=== PATIENT | male | born 1980 | race Caucasian/White ===

== ENCOUNTER 2023-06-25 09:26 | Inpatient (IN) | payer BC ==
[~2023-06-25] VITALS: Ht 188 cm; Wt 120.2 kg
[2023-06-25 09:26] VITALS: BP_SYST 158; PULSE 122; RESP 19; TEMP 98.3; O2SAT 99
[2023-06-25] MEDS ORDERED: PIPERACILLIN/TAZO 3.375 GM in NS 50 ML IV ONE (10:45)
[2023-06-25] MEDS: VANCOMYCIN HCL 1.25 GM/NS 250 ML IV ONE ×2 (10:45→11:35)
[2023-06-25] MEDS ORDERED: NACL 0.9% 1,000 ML IV ONE ×3 (10:45→13:00)
[2023-06-25 10:51] LABS: HEMATOCRIT 41.5 % (36-54); HEMOGLOBIN 13.2 g/dL (14.0-18.0); MEAN CORPUSCULAR HEMOGLOBIN 27 pg (27-31); MEAN CORPUSCULAR HGB CONC 32 % (32-36); MEAN CORPUSCULAR VOLUME 85 fL (79.0-98.0); PLATELET COUNT (AUTO) 252 K/uL (130-430); RED CELL DISTRIBUTION WIDTH 13.2 % (9.0-15.0); WHITE BLOOD COUNT (AUTO) 21.9 K/uL (4.8-10.8)
[2023-06-25] MEDS ORDERED: PIPERACILLIN/TAZOBACTAM 3.375 GM/VIAL (ZOSYN) IV ONE (10:54)
[2023-06-25 10:58] LABS: PROTHROMBIN TIME 10.5 SECS (9.5-12.5)
[2023-06-25] MEDS ORDERED: VANCOMYCIN HCL 1,000 MG in NS 250 ML IV ONE (11:00)
[2023-06-25] MEDS ORDERED: VANCOMYCIN HCL 1000 MG/VIAL IV ONE (11:03)
[2023-06-25 11:07] LABS: ALANINE AMINOTRANSFERASE 29 U/L (12-78); ALBUMIN 2.9 g/dL (3.4-4.8); ANION GAP 26 (5-15); ASPARTATE AMINOTRANSFERASE 19 U/L (10-37); BILIRUBIN,DIRECT 0.3 mg/dL (0.0-0.3); CALCIUM 9.7 mg/dL (8.4-11.0); CARBON DIOXIDE 11 mmol/L (23-29); CHLORIDE 93 mmol/L (98-107); CREATININE 1.22 mg/dL (0.55-1.30); GFR AFRICAN AMERICAN 84 mL/min (>90); POTASSIUM 4.4 mmol/L (3.5-5.1); SODIUM SERUM 130 mmol/L (136-145); TOTAL BILIRUBIN 0.9 mg/dL (0.0-1.0); TOTAL PROTEIN, SERUM 8.7 g/dL (6.4-8.3); UREA NITROGEN, BLOOD 13 mg/dL (8-21)
[2023-06-25 11:11] LABS: GFR NON AFRICAN-AMERICAN 70 mL/min (>90)
[2023-06-25 11:12] LABS: GLUCOSE 435 mg/dL (74-106)
[2023-06-25 11:14] LABS: ACETONE, SERUM SMALL (NEGATIVE)
[2023-06-25 11:22] LABS: BILIRUBIN,URINE 1+ (NEGATIVE); BLOOD, URINE 2+ (NEGATIVE); COLOR,URINE YELLOW (YELLOW); GLUCOSE,URINE 2+ (NEGATIVE); KETONES,URINE 3+ (NEGATIVE); LEUKOCYTE ESTERASE ,URINE NEGATIVE (NEGATIVE); NITRITE, URINE NEGATIVE (NEGATIVE); PH,URINE 5.5 (5.0-8.0); PROTEIN URINE 1+ (NEGATIVE); UROBILINOGEN,URINE 0.2 (0.2-1.0)
[2023-06-25 11:23] LABS: CLARITY/URINE CLOUDY (CLEAR)
[2023-06-25] MEDS ORDERED: INSULIN REGULAR, HUMAN 100 UNITS in NS 99 ML IV ONE ×2 (11:30)
[2023-06-25] MEDS ORDERED: KCL 20 mEq in 100 mL (PREMIX) 100 ML IV ONE (11:30)
[2023-06-25 11:42] LABS: BAND % (MANUAL) 10 % (0-6); BASOPHILS % (MANUAL) 0 % (0-2); EOSINOPHILS % (MANUAL) 0 % (0-7); LYMPHOCYTES % (MANUAL) 6 % (20-46); MONOCYTES % (MANUAL) 8 % (0-11); PLATELET ESTIMATE ADEQUATE (ADEQUATE)
[2023-06-25 11:45] LABS: WBC,URINE 0-3 /HPF (0-3)
[2023-06-25 11:46] LABS: BACTERIA,URINE FEW /HPF (None Seen); FINE GRANULAR CASTS,URINE 0-10 /LPF (None Seen)
[2023-06-25] MEDS ORDERED: METF-379 PO (11:47)
[2023-06-25] MEDS ORDERED: DEXTROSE 50% JECT 50 ML DISP.SYRIN IVP PRN (12:15)
[2023-06-25] MEDS ORDERED: ONDANSETRON HCL 4 MG/2 ML VIAL IVP PRN (12:15)
[2023-06-25] MEDS ORDERED: MORPHINE 2 MG/ML INJ. SYRINGE IVP PRN (12:15)
[2023-06-25] MEDS ORDERED: MAGNESIUM SULFATE 50 ML IV PRN ×2 (12:15→19:30)
[2023-06-25] MEDS ORDERED: NALOXONE HCL 2 MG/2 ML SYR IVP PRN ×2 (12:15)
[2023-06-25] MEDS ORDERED: ACETAMINOPHEN 500 MG TABLET PO PRN ×2 (12:15→13:00)
[2023-06-25] MEDS ORDERED: LORazepam 2 MG/ML VIAL IVP PRN (12:15)
[2023-06-25] MEDS ORDERED: INSULIN REGULAR, HUMAN 100 UNITS in NS 99 ML IV PRN ×2 (12:15)
[2023-06-25] MEDS ORDERED: ZOLPIDEM TARTRATE 5 MG TABLET PO PRN (12:15)
[2023-06-25] MEDS ORDERED: DOCUSATE SODIUM 100 MG CAPSULE PO PRN (12:15)
[2023-06-25] MEDS: NACL 0.9% 1,000 ML IV SCH (12:27)
[2023-06-25 12:49] LABS: BLOOD GAS PH 7.242 (7.350-7.450)
[2023-06-25 12:50] LABS: ABG O2 SAT% ESTIMATE 97.7 % (94.0-100.0); ALLEN'S TEST POSITIVE (P); BLOOD GAS BASE EXCESS -18.4 mmol/L (-3.0-3.0); BLOOD GAS HCO3 6.1 mmol/L (21.0-27.0); BLOOD GAS PCO2 14.4 mmHg (32.0-45.0)
[2023-06-25 14:56] LABS: PHOSPHORUS 4.1 mg/dL (2.7-4.5)
[2023-06-25 16:29] LABS: COVID19 ANTIGEN SOFIA FIA NEGATIVE (NEGATIVE); INFLUENZA TYPE A Negative (NEGATIVE); INFLUENZA TYPE B NEGATIVE (NEGATIVE)
[2023-06-25 17:33] LABS: CREATININE 1.09 mg/dL (0.55-1.30); POTASSIUM 4.7 mmol/L (3.5-5.1)
[2023-06-25] MEDS: PIPERACILLIN/TAZO 3.375/DEX-IS 50 ML IV SCH (18:59)
[2023-06-25 19:53] LABS: CREATININE 1.08 mg/dL (0.55-1.30); POTASSIUM 4.1 mmol/L (3.5-5.1)
[2023-06-25 21:15] VITALS: BP_SYST 129; PULSE 102; RESP 26; TEMP 98.8; O2SAT 99
[2023-06-25] MEDS: VANCOMYCIN HCL 1,250 MG in NS 250 ML IV SCH (21:39)
[2023-06-25 23:15] VITALS: BP_SYST 147; PULSE 94; RESP 21; TEMP 98.8; O2SAT 99
[2023-06-26] VITALS (23 sets, daily range): BP systolic 126–168; PULSE 83–93; RESP 12–24; TEMP 98.4–99; O2SAT 95–99
[2023-06-26] MEDS: NACL 0.9% 1,000 ML IV SCH ×4 (01:04→18:27)
[2023-06-26] MEDS: PIPERACILLIN/TAZO 3.375/DEX-IS 50 ML IV SCH ×4 (01:21→18:26)
[2023-06-26] MEDS: MORPHINE 2 MG/ML INJ. SYRINGE IVP PRN ×5 (01:23→19:33)
[2023-06-26 01:32] LABS: CALCIUM 9.1 mg/dL (8.4-11.0); CREATININE 1.05 mg/dL (0.55-1.30); POTASSIUM 3.5 mmol/L (3.5-5.1)
[2023-06-26 05:25] LABS: BASOPHILS # (AUTO) 0.1 K/uL (0.0-0.2); BASOPHILS % (AUTO) 0.4 % (0.0-2.0); EOSINOPHILS # (AUTO) 0.1 K/uL (0.0-0.4); EOSINOPHILS % (AUTO) 0.9 % (0.0-4.0); HEMATOCRIT 34.7 % (36-54); HEMOGLOBIN 11.1 g/dL (14.0-18.0); LYMPHOCYTES % (AUTO) 7.5 % (20.5-51.5); MEAN CORPUSCULAR HEMOGLOBIN 27 pg (27-31); MEAN CORPUSCULAR HGB CONC 32 % (32-36); MEAN CORPUSCULAR VOLUME 83 fL (79.0-98.0); MONOCYTES # (AUTO) 1.7 K/uL (0.0-1.0); MONOCYTES % (AUTO) 12.4 % (1.7-9.3); NEUTROPHILS # (AUTO) 10.6 K/uL (1.8-7.7); NEUTROPHILS % (AUTO) 78.8 % (40.0-70.0); PLATELET COUNT (AUTO) 203 K/uL (130-430); RED BLOOD CELL COUNT(AUTO) 4.19 MIL/uL (4.2-6.2); RED CELL DISTRIBUTION WIDTH 13.4 % (9.0-15.0); WHITE BLOOD COUNT (AUTO) 13.4 K/uL (4.8-10.8)
[2023-06-26 05:41] LABS: CALCIUM 8.8 mg/dL (8.4-11.0); CREATININE 0.96 mg/dL (0.55-1.30); POTASSIUM 3.5 mmol/L (3.5-5.1)
[2023-06-26] MEDS ORDERED: COMMUNICATION ORDER XX ONE (07:30)
[2023-06-26 08:14] LABS: CALCIUM 7.8 mg/dL (8.4-11.0); CREATININE 0.93 mg/dL (0.55-1.30); POTASSIUM 3.2 mmol/L (3.5-5.1)
[2023-06-26] MEDS: VANCOMYCIN HCL 1,250 MG in NS 250 ML IV SCH ×2 (09:30→21:14)
[2023-06-26 12:45] LABS: CALCIUM 8.8 mg/dL (8.4-11.0); CREATININE 0.94 mg/dL (0.55-1.30); POTASSIUM 3.2 mmol/L (3.5-5.1)
[2023-06-26 16:43] LABS: CALCIUM 8.7 mg/dL (8.4-11.0); CREATININE 0.94 mg/dL (0.55-1.30)
[2023-06-27] VITALS (24 sets, daily range): BP systolic 129–162; PULSE 78–97; RESP 12–27; TEMP 98.3–98.7; O2SAT 94–99
[2023-06-27] MEDS: MORPHINE 2 MG/ML INJ. SYRINGE IVP PRN (03:17)
[2023-06-27] MEDS: NACL 0.9% 1,000 ML IV SCH ×3 (04:59→23:49)
[2023-06-27 05:02] LABS: BASOPHILS % (AUTO) 0.3 % (0.0-2.0); EOSINOPHILS # (AUTO) 0.4 K/uL (0.0-0.4); EOSINOPHILS % (AUTO) 3.1 % (0.0-4.0); HEMATOCRIT 33.5 % (36-54); HEMOGLOBIN 10.8 g/dL (14.0-18.0); LYMPHOCYTES # (AUTO) 1.3 K/uL (1.0-5.5); LYMPHOCYTES % (AUTO) 11.8 % (20.5-51.5); MEAN CORPUSCULAR HEMOGLOBIN 26 pg (27-31); MEAN CORPUSCULAR HGB CONC 32 % (32-36); MEAN CORPUSCULAR VOLUME 82 fL (79.0-98.0); MONOCYTES # (AUTO) 1.3 K/uL (0.0-1.0); MONOCYTES % (AUTO) 11.8 % (1.7-9.3); NEUTROPHILS # (AUTO) 8.2 K/uL (1.8-7.7); PLATELET COUNT (AUTO) 229 K/uL (130-430); RED CELL DISTRIBUTION WIDTH 13.3 % (9.0-15.0); WHITE BLOOD COUNT (AUTO) 11.2 K/uL (4.8-10.8)
[2023-06-27 05:14] LABS: CALCIUM 8.8 mg/dL (8.4-11.0); CREATININE 0.88 mg/dL (0.55-1.30)
[2023-06-27 06:00] LABS: POTASSIUM 2.8 mmol/L (3.5-5.1)
[2023-06-27] MEDS: PIPERACILLIN/TAZO 3.375/DEX-IS 50 ML IV SCH ×5 (06:01→23:49)
[2023-06-27] MEDS: POTASSIUM CHLORIDE 20 MEQ TABLET.ER PO PRN (06:34)
[2023-06-27] MEDS ORDERED: GLUCOSE (DEXTROSE) ORAL GEL -Adults PO PRN (07:30)
[2023-06-27] MEDS ORDERED: D5W 1,000 ML IV PRN (07:30)
[2023-06-27] MEDS ORDERED: DEXTROSE 50%-WATER 50 ML DISP.SYRIN IVP PRN (07:30)
[2023-06-27] MEDS: INSULIN GLARGINE 100 UNITS/ML, 10 ML VIAL SUBCUT SCH ×2 (09:00→21:12)
[2023-06-27] MEDS: VANCOMYCIN HCL 1,250 MG in NS 250 ML IV SCH (10:19)
[2023-06-27] MEDS: VANCOMYCIN HCL 1,500 MG in NS 250 ML IV SCH (16:57)
[2023-06-27] MEDS ORDERED: VANCOMYCIN HCL 1,250 MG in NS 250 ML IV SCH (17:00)
[2023-06-27] MEDS: INSULIN LISPRO SLIDING SCALE 100 UNITS/ML, 3 ML VIAL (humaLOG) SUBCUT PRN (21:14)
[2023-06-28] VITALS (12 sets, daily range): BP systolic 124–140; PULSE 69–100; RESP 12–27; TEMP 97.6–99.4; O2SAT 95–98
[2023-06-28] MEDS: VANCOMYCIN HCL 1,500 MG in NS 250 ML IV SCH ×2 (00:52→09:00)
[2023-06-28 05:52] LABS: CALCIUM 8.8 mg/dL (8.4-11.0); CREATININE 0.8 mg/dL (0.55-1.30)
[2023-06-28 05:54] LABS: POTASSIUM 2.9 mmol/L (3.5-5.1)
[2023-06-28 06:06] LABS: BASOPHILS # (AUTO) 0.1 K/uL (0.0-0.2); BASOPHILS % (AUTO) 0.6 % (0.0-2.0); EOSINOPHILS # (AUTO) 0.4 K/uL (0.0-0.4); EOSINOPHILS % (AUTO) 4.1 % (0.0-4.0); HEMATOCRIT 34.1 % (36-54); HEMOGLOBIN 11.2 g/dL (14.0-18.0); LYMPHOCYTES % (AUTO) 20.5 % (20.5-51.5); MEAN CORPUSCULAR HEMOGLOBIN 27 pg (27-31); MEAN CORPUSCULAR HGB CONC 33 % (32-36); MEAN CORPUSCULAR VOLUME 81 fL (79.0-98.0); MONOCYTES # (AUTO) 1.3 K/uL (0.0-1.0); MONOCYTES % (AUTO) 12.9 % (1.7-9.3); NEUTROPHILS # (AUTO) 6.1 K/uL (1.8-7.7); NEUTROPHILS % (AUTO) 61.9 % (40.0-70.0); PLATELET COUNT (AUTO) 265 K/uL (130-430); RED BLOOD CELL COUNT(AUTO) 4.21 MIL/uL (4.2-6.2); RED CELL DISTRIBUTION WIDTH 13.7 % (9.0-15.0); WHITE BLOOD COUNT (AUTO) 9.8 K/uL (4.8-10.8)
[2023-06-28] MEDS: PIPERACILLIN/TAZO 3.375/DEX-IS 50 ML IV SCH ×3 (06:09→17:51)
[2023-06-28] MEDS: POTASSIUM CHLORIDE 20 MEQ TABLET.ER PO PRN (06:10)
[2023-06-28] MEDS: INSULIN LISPRO SLIDING SCALE 100 UNITS/ML, 3 ML VIAL (humaLOG) SUBCUT PRN ×4 (06:13→21:43)
[2023-06-28] MEDS ORDERED: HYDROmorphone 2 MG/ML VIAL ONE (07:23)
[2023-06-28] MEDS ORDERED: MIDAZOLAM HCL 2 MG/2 ML VIAL (VERSED) ONE (07:24)
[2023-06-28] MEDS ORDERED: NS 1000 ML IV.SOLN IV ONE (07:30)
[2023-06-28] MEDS ORDERED: SUCCINYLCHOLINE CHLORIDE 20 MG/ML(QUELICIN) ONE (07:30)
[2023-06-28] MEDS ORDERED: METOCLOPRAMIDE HCL 10 MG/2 ML VIAL ONE (07:30)
[2023-06-28] MEDS ORDERED: ONDANSETRON HCL 4 MG/2 ML VIAL ONE (07:30)
[2023-06-28] MEDS ORDERED: NS IRRIG SOLN 1000 ML IR ONE (07:30)
[2023-06-28] MEDS ORDERED: SEVOFLURANE 15 MIN GAS INH ONE (07:30)
[2023-06-28] MEDS ORDERED: PROPOFOL 200MG/ 20ML VIAL (DIPRIVAN) IV ONE (07:30)
[2023-06-28] MEDS ORDERED: HYDROcodone/ACETAMIN 5-325 MG TAB (NORCO/ VICODIN) PO PRN (08:15)
[2023-06-28] MEDS ORDERED: HYDROmorphone 1 MG/ML INJ. CARTRIDGE IVP PRN ×3 (08:15→08:30)
[2023-06-28] MEDS ORDERED: ONDANSETRON HCL 4 MG/2 ML VIAL IVP PRN (08:30)
[2023-06-28] MEDS ORDERED: NALOXONE HCL 0.4 MG/ML AMP (NARCAN) IVP PRN ×3 (08:30→10:45)
[2023-06-28] MEDS ORDERED: HYDROmorphone 2 MG/ML VIAL IVP PRN (08:30)
[2023-06-28] MEDS ORDERED: METOCLOPRAMIDE HCL 10 MG/2 ML VIAL IVP PRN (08:30)
[2023-06-28] MEDS ORDERED: INSULIN REGULAR, HUMAN 100 UNITS/ML, 3 ML VIAL (humuLIN R) ONE (08:56)
[2023-06-28] MEDS: INSULIN GLARGINE 100 UNITS/ML, 10 ML VIAL SUBCUT SCH ×2 (09:00→21:38)
[2023-06-28] MEDS: NACL 0.9% 1,000 ML IV SCH ×2 (10:46→21:48)
[2023-06-28] MEDS ORDERED: POTASSIUM CHLORIDE 20 MEQ TABLET.ER PO ONE (11:00)
[2023-06-28] MEDS: MORPHINE 2 MG/ML INJ. SYRINGE IVP PRN (12:12)
[2023-06-28] MEDS: MUPIROCIN 2% TOPICAL OINTMENT 22 GM NS SCH (21:00)
[2023-06-29] VITALS (7 sets, daily range): BP systolic 136–151; PULSE 16–84; RESP 16–20; TEMP 98.3–98.9; O2SAT 95–99
[2023-06-29] MEDS ORDERED: VANCOMYCIN HCL 1,500 MG in NS 250 ML IV SCH (02:00)
[2023-06-29] MEDS: PIPERACILLIN/TAZO 3.375/DEX-IS 50 ML IV SCH ×4 (05:34→17:15)
[2023-06-29] MEDS: INSULIN LISPRO SLIDING SCALE 100 UNITS/ML, 3 ML VIAL (humaLOG) SUBCUT PRN ×4 (07:07→21:26)
[2023-06-29] MEDS: NACL 0.9% 1,000 ML IV SCH ×3 (07:14→21:39)
[2023-06-29] MEDS: MUPIROCIN 2% TOPICAL OINTMENT 22 GM NS SCH ×2 (08:40→21:21)
[2023-06-29] MEDS: INSULIN GLARGINE 100 UNITS/ML, 10 ML VIAL SUBCUT SCH ×2 (08:42→21:28)
[2023-06-29] MEDS: POTASSIUM CHLORIDE 20 MEQ TABLET.ER PO SCH (08:42)
[2023-06-29 09:25] LABS: BASOPHILS % (AUTO) 0.5 % (0.0-2.0); EOSINOPHILS # (AUTO) 0.3 K/uL (0.0-0.4); EOSINOPHILS % (AUTO) 3.2 % (0.0-4.0); HEMATOCRIT 36.3 % (36-54); HEMOGLOBIN 11.7 g/dL (14.0-18.0); LYMPHOCYTES # (AUTO) 1.9 K/uL (1.0-5.5); LYMPHOCYTES % (AUTO) 20.9 % (20.5-51.5); MEAN CORPUSCULAR HEMOGLOBIN 26 pg (27-31); MEAN CORPUSCULAR HGB CONC 32 % (32-36); MEAN CORPUSCULAR VOLUME 82 fL (79.0-98.0); MONOCYTES # (AUTO) 1.1 K/uL (0.0-1.0); MONOCYTES % (AUTO) 11.8 % (1.7-9.3); NEUTROPHILS # (AUTO) 5.7 K/uL (1.8-7.7); NEUTROPHILS % (AUTO) 63.6 % (40.0-70.0); PLATELET COUNT (AUTO) 300 K/uL (130-430); RED BLOOD CELL COUNT(AUTO) 4.43 MIL/uL (4.2-6.2); RED CELL DISTRIBUTION WIDTH 13.6 % (9.0-15.0)
[2023-06-29 09:35] LABS: CALCIUM 8.6 mg/dL (8.4-11.0); CREATININE 0.82 mg/dL (0.55-1.30)
[2023-06-29 09:38] LABS: POTASSIUM 2.9 mmol/L (3.5-5.1)
[2023-06-29] MEDS ORDERED: MUPIROCIN 1 GM OIN.PF.APP NS SCH (14:30)
[2023-06-29] MEDS: INSULIN Lispro 100 UNITS/ML, 3 ML VIAL (humaLOG) SUBCUT SCH (17:14)
[2023-06-29] MEDS: VANCOMYCIN HCL 1,250 MG in NS 250 ML IV SCH (21:23)
[2023-06-30] MEDS: PIPERACILLIN/TAZO 3.375/DEX-IS 50 ML IV SCH ×2 (00:22→05:41)
[2023-06-30 01:08] VITALS: BP_SYST 146; PULSE 75; RESP 18; TEMP 97.6; O2SAT 97
[2023-06-30] MEDS: VANCOMYCIN HCL 1,250 MG in NS 250 ML IV SCH ×2 (05:40→14:00)
[2023-06-30] MEDS: INSULIN Lispro 100 UNITS/ML, 3 ML VIAL (humaLOG) SUBCUT SCH ×2 (07:02→12:03)
[2023-06-30] MEDS: INSULIN LISPRO SLIDING SCALE 100 UNITS/ML, 3 ML VIAL (humaLOG) SUBCUT PRN ×2 (07:06→12:04)
[2023-06-30] MEDS: POTASSIUM CHLORIDE 20 MEQ TABLET.ER PO SCH (08:25)
[2023-06-30] MEDS: MUPIROCIN 2% TOPICAL OINTMENT 22 GM NS SCH (08:25)
[2023-06-30] MEDS: INSULIN GLARGINE 100 UNITS/ML, 10 ML VIAL SUBCUT SCH (08:27)
[2023-06-30 09:49] LABS: BASOPHILS # (AUTO) 0.1 K/uL (0.0-0.2); BASOPHILS % (AUTO) 0.6 % (0.0-2.0); EOSINOPHILS # (AUTO) 0.3 K/uL (0.0-0.4); HEMATOCRIT 36.6 % (36-54); HEMOGLOBIN 11.7 g/dL (14.0-18.0); LYMPHOCYTES # (AUTO) 2.4 K/uL (1.0-5.5); MEAN CORPUSCULAR HEMOGLOBIN 26 pg (27-31); MEAN CORPUSCULAR HGB CONC 32 % (32-36); MEAN CORPUSCULAR VOLUME 82 fL (79.0-98.0); MONOCYTES # (AUTO) 1.2 K/uL (0.0-1.0); MONOCYTES % (AUTO) 12.5 % (1.7-9.3); NEUTROPHILS # (AUTO) 5.3 K/uL (1.8-7.7); NEUTROPHILS % (AUTO) 57.9 % (40.0-70.0); PLATELET COUNT (AUTO) 327 K/uL (130-430); RED BLOOD CELL COUNT(AUTO) 4.47 MIL/uL (4.2-6.2); RED CELL DISTRIBUTION WIDTH 13.3 % (9.0-15.0); WHITE BLOOD COUNT (AUTO) 9.3 K/uL (4.8-10.8)
[2023-06-30 10:48] LABS: CALCIUM 8.6 mg/dL (8.4-11.0); CREATININE 0.88 mg/dL (0.55-1.30)
[2023-06-30] MEDS ORDERED: LISI10TA29 PO (10:54)
[2023-06-30] MEDS ORDERED: INSU300I SQ (10:54)
[2023-06-30] MEDS ORDERED: LINE600T12 PO (10:55)
[2023-06-30] MEDS ORDERED: MUPIROCIN 2% TOPICAL OINTMENT 22 GM TP SCH (11:00)
[2023-06-30] MEDS ORDERED: LISINOPRIL 10 MG TABLET (PRINIVIL) PO ONE (11:00)
[2023-06-30] MEDS ORDERED: HYDR-3917 PO (11:03)
[2023-06-30 11:04] VITALS: BP_SYST 143; PULSE 84; RESP 16; TEMP 98; O2SAT 96
[2023-06-30 12:12] VITALS: BP_SYST 146; PULSE 73; RESP 18; TEMP 98.3; O2SAT 96
[2023-06-30] MEDS: MORPHINE 2 MG/ML INJ. SYRINGE IVP PRN (13:42)
[2023-06-30] MEDS: NACL 0.9% 1,000 ML IV SCH (13:43)
[2023-06-30] MEDS ORDERED: INSU100V9 SQ (23:05)
[2023-07-01] MEDS ORDERED: LISINOPRIL 10 MG TABLET (PRINIVIL) PO SCH (09:00)
== END 2023-06-30 15:10 | disposition home health service (06) | DRG 853 ==
LOC: SED 09:26 → SIC 11:37 → SMU 06-28 15:20
PROVIDERS: ADMIT General Practice; ATTEND General Practice
PROC: 0JB80ZZ Excision of Abdomen Subcutaneous Tissue and Fascia, Open Approach (ICD-10-PCS; principal; 2023-06-28 07:40)
DX: A41.9 Sepsis, unspecified organism (principal); E11.10 Type 2 diabetes mellitus with ketoacidosis without coma; L02.214 Cutaneous abscess of groin; L03.314 Cellulitis of groin; Z20.822 Contact with and (suspected) exposure to COVID-19; R65.20 Severe sepsis without septic shock; E66.9 Obesity, unspecified; E11.65 Type 2 diabetes mellitus with hyperglycemia; E87.6 Hypokalemia; Z91.013 Allergy to seafood; Z79.899 Other long term (current) drug therapy; Z79.4 Long term (current) use of insulin; Z68.34 Body mass index [BMI] 34.0-34.9, adult
CPT/HCPCS: 36415; 36600; 71045; 72193-TC; 76376; 80048; 80076; 80202; 81000; 81001; 81015; 82009; 82803; 82962; 83037; 83605; 83735; 84100; 85007; 85025; 85027; 85610-TC; 85730-TC; 87040; 87070-TC; 87075-TC; 87081; 87086; 87186-TC; 96365; 96367; 99285; J0330; J1170; J1815; J2060; J2270; J2310; J2405; J2543; J2704; J2765; J3370; J3465; J3480; J7030; J7050; Q9967